=== PATIENT | male | born 1980 | race Caucasian/White ===

== ENCOUNTER → 2020-01-17 08:47 | Outpatient (BNVA) | payer BC, SELFPAY | PROVIDERS: Family Provider Nurse Practitioner Family; PCP Nurse Practitioner Family; Visit Provider Psychiatry & Neurology Psychiatry | DX: F41.1 Generalized anxiety disorder (principal); F90.9 Attention-deficit hyperactivity disorder, unspecified type; F12.10 Cannabis abuse, uncomplicated | CPT/HCPCS: 99204 ==

== ENCOUNTER → 2020-02-28 08:42 | Outpatient (BNVA) | payer BC, SELFPAY | PROVIDERS: Family Provider Nurse Practitioner Family; PCP Nurse Practitioner Family; Visit Provider Psychiatry & Neurology Psychiatry | DX: F90.9 Attention-deficit hyperactivity disorder, unspecified type (principal); F41.1 Generalized anxiety disorder; F12.10 Cannabis abuse, uncomplicated | CPT/HCPCS: 99213 ==

== ENCOUNTER → 2020-04-18 07:36 | Outpatient (BNVA) | payer BC, SELFPAY | PROVIDERS: Family Provider Nurse Practitioner Family; PCP Nurse Practitioner Family; Visit Provider Psychiatry & Neurology Psychiatry | DX: F90.9 Attention-deficit hyperactivity disorder, unspecified type (principal); F41.1 Generalized anxiety disorder; F12.10 Cannabis abuse, uncomplicated | CPT/HCPCS: 99214 ==

== ENCOUNTER → 2020-05-30 09:22 | Outpatient (BNVA) | payer BC, SELFPAY | PROVIDERS: Family Provider Nurse Practitioner Family; PCP Nurse Practitioner Family; Visit Provider Psychiatry & Neurology Psychiatry | DX: F90.9 Attention-deficit hyperactivity disorder, unspecified type (principal); F41.1 Generalized anxiety disorder; F12.10 Cannabis abuse, uncomplicated | CPT/HCPCS: 99214 ==

== ENCOUNTER → 2021-09-24 13:12 | Outpatient (BNVA) | payer OTHER, SELFPAY | PROVIDERS: Family Provider Nurse Practitioner Family; PCP Nurse Practitioner Family; Visit Provider Surgery | DX: D17.9 Benign lipomatous neoplasm, unspecified (principal); R22.2 Localized swelling, mass and lump, trunk | CPT/HCPCS: 99203 ==

== ENCOUNTER → 2021-12-05 09:00 | Outpatient (BNVA) | payer OTHER, SELFPAY | PROVIDERS: Family Provider Nurse Practitioner Family; PCP Nurse Practitioner Family; Referring Provider Emergency Medicine Emergency Medical Services; Visit Provider Podiatrist Foot & Ankle Surgery | DX: M72.2 Plantar fascial fibromatosis (principal); Q66.70 Congenital pes cavus, unspecified foot | CPT/HCPCS: 73630; 99203; 99204 ==

== ENCOUNTER 2021-12-24 08:37 | Outpatient (CLI) | payer OTHER, SELFPAY ==
--- NOTE | 2021-12-24 08:45 | US_ITS ---
WS: [id number] INDICATION: Lipoma? TECHNIQUE: Ultrasound soft tissue area of concern RIGHT back FINDINGS: Ultrasound area of concern]. Ovoid Mixed echogenicity lesion in the area of palpable concern measuring 5.2 x 1.3 cm most compatibl e with subcutaneous lipoma. No other suspicious anomalies. US/US soft tissue/extremity 89150 IMPRESSION: Mixed echogenicity lesion in the area of palpable concern measuring 5.2 x 1.3 cm most compatible with subcutaneous lipoma.
== END 2021-12-24 08:38 | disposition home or self-care (01) ==
LOC: RAD 08:39
PROVIDERS: PCP Nurse Practitioner Family; Visit Provider Surgery
DX: D17.9 Benign lipomatous neoplasm, unspecified (principal)
CPT/HCPCS: 76882

== ENCOUNTER 2022-01-15 08:57 | Day surgery (SDC) | payer OTHER, SELFPAY ==
[2022-01-15] VITALS (7 sets, daily range): BP systolic 106–146; BP diastolic 82–98; PULSE 63–103; RESP 18–23; TEMP 36.3–37.6; O2SAT 95–100
[2022-01-15] MEDS: sodium chloride 0.9% 1,000 ML 30 ML IV (09:19)
--- NOTE | 2022-01-15 09:22 | W.PM.OPSFHP ---
Same Day Surgery H&P Indication for Procedure/HPI DATE OF PROCEDURE: January 15, 2022 CHIEF COMPLAINT/INDICATIONFOR SURGICAL PROCEDURE: I have a spot on my back PREOP DIAGNOSIS: Back mass PLANNED PROCEDURE: Operation Date: 01/15/22 10:30 Proposed Procedures p excision of back mass 38268 R22.2(Not Applicable) - Robson Hurt MD 09/24/2021 This is a pleasant 41 years old gentleman comes today with concern of a mass on the right upper back, that has been there for quite some time.? In fact for few years and has been tender and painful, patient was referred to my practice for consideration of surgical excision, he reports no recent growth 01/15/2022 Patient comes today for excision of back mass, ultrasound was obtained on 12/24/2021 that did show; IMPRESSION: Mixed echogenicity lesion in the area of palpable concern measuring 5.2 x 1.3 cm most compatible with subcutaneous lipoma. ? ROS All systems have been reviewed negative except as for the above or per problem list. Medications/Allergies* Home Medications Medication Instructions Recorded Confirmed Type dextroamphetamine-amphetamine 10 10 mg PO BID 09/24/21 01/14/22 History mg tablet (Adderall) ibuprofen 200 mg tablet 200 mg PO .5 tabs daily PRN Pain 09/24/21 01/15/22 History Allergies/Adverse Reactions Allergy/AdvReac Type Severity Reaction Status Date / Time No Known Allergies Allergy Verified 01/15/22 09:23 Current Medications: Generic Name Dose Route Start Last Admin Trade Name Freq PRN Reason Stop Dose Admin Sodium Chloride 1,000 mls @ 30 mls/hr 01/15/22 09:15 01/15/22 09:19 Sodium Chloride 0.9% IV 01/16/22 09:14 30 mls/hr .Q24H NAHUM Administration Pertinent History/Comorbid Conditions* Medical History (Updated 09/27/21 @ 17:56 by Robson Hurt MD) ADHD (attention deficit hyperactivity disorder) Cannabis abuse Social History Smoking and tobacco status: never smoked Quit status (tobacco): has quit using tobacco Year quit tobacco: 2005 Second hand smoke exposure: No Current gender identity: Male Pertinent Exam Findings alert, oriented x 3, regular rate & rhythm and operative site marked (Right upper back mass) Recommendations Surgery/Procedure today (Excision of right upper back mass) Coding Level of Care Code Acute Nutritionist Public Health for [facility] Fwd
[2022-01-15] MEDS: ceFAZolin 2,000 MG in sodium chloride 0.9% (plus) 50 ML 100 MG IV (13:14)
[2022-01-15] MEDS: lidocaine 1% INJ 20 mL SUBCUT (13:33)
--- NOTE | 2022-01-15 13:41 | ANES.PREANE2 ---
Pre-Anesthetic Assessment Height/Weight: Height 1.83 m Weight 99.79 kg Temp Pulse Resp BP Pulse Ox O2 Del Method 99.6 F 63 18 130/89 96 01/15/22 09:06 01/15/22 09:06 01/15/22 09:06 01/15/22 09:06 01/15/22 09:06 01/15/22 09:06 Preop Diagnosis: Right upper back mass Operation Date: 01/15/22 10:30 Proposed Procedures p excision of back mass 62357 R22.2(Not Applicable) - Robson Hurt MD Familial anesthetic complications: none Was Beta Fawad taken within 24 hours: N/A Was Clonidine taken within 24 hours: N/A Last intake: Intake Last Liquid Date 01/14/22 Last Liquid Time 20:00 Last Solid Date 01/14/22 Last Solid Time 20:00 Social No alcohol and No tobacco Exam alert, oriented x 3, clear to auscultation bilaterally and regular rate & rhythm Airway Submandibular: within normal limits Cervical ROM: within normal limits Mallampati: Class II Dentition: full History/ROS No significant history except as noted Anesthetic Plan ASA status: 1 Anesthesia: General Medications/Allergies Home Medications Medication Instructions Recorded Confirmed Last Taken Type dextroamphetamine-amphetamine 10 10 mg PO BID 09/24/21 01/14/22 01/13/22 History mg tablet (Adderall) ibuprofen 200 mg tablet 200 mg PO .5 tabs daily PRN Pain 09/24/21 01/15/22 01/14/22 History Low profile CUSTOM carbon fiber #1 ea 12/05/21 12/05/21 Unknown Rx insoles Night splint bilaterally #1 ea 12/05/21 12/05/21 Unknown Rx Allergies Allergy/AdvReac Type Severity Reaction Status Date / Time No Known Allergies Allergy Verified 01/15/22 09:23 Current Medications Generic Name Dose Route Start Last Admin Trade Name Freq PRN Reason Stop Dose Admin Sodium Chloride 1,000 mls @ 30 mls/hr 01/15/22 09:15 01/15/22 09:19 Sodium Chloride 0.9% IV 01/16/22 09:14 30 mls/hr .Q24H NAHUM Administration PFSH Anesthesia Medical History ADHD (attention deficit hyperactivity disorder) Cannabis abuse Social History Smoking and tobacco status: never smoked Quit status (tobacco): has quit using tobacco Year quit tobacco: 2005 Second hand smoke exposure: No Current gender identity: Male Data Anesthesia Cardiac Studies: No Data to Display
--- NOTE | 2022-01-15 13:58 | P.OP_ITS ---
Operative Report Date of procedure: January 15, 2022 Pre-op diagnosis: Preop Diagnosis Right upper back mass Procedure done: Excision of right upper back lipoma Specimens removed/disposition: Right upper back mass short sutures marked superior and long sutures marked right lateral 7 x 3 x 3.5 cm Surgeon: Robson Hurt MD Wild Animal Caretaker: Moni Bee Anesthesia: General (liner roll changer waldemar Rivas and SILK SPOOLER Lawrence) Estimated blood loss (mL): 5 IV fluids (mL): 700 Procedure: After identifying the patient holding area, right upper back mass was marked before the procedure by myself, patient was then taken to the operative suite, was placed in left lateral position, all pressure points were padded, IV antibiotics were given per protocol, LMA was placed by the anesthesia provider, prep and drape of the right upper and mid back regions were done under the usual sterile technique. Time-out was done verifying the patient's name/date of /planned procedure and destination after the procedure, all were in agreement. After palpation of right upper back mass. Infiltration of lidocaine 2%. Started with transverse oblique incision. I was able to dissect using sharp dissection using Bovie cautery the whole mass all the way to the muscular layer but not intramuscular. Lipoma-like structure was totally excised ,short sutures marked superior and long sutures marked right lateral 7 x 3 x 3.5 cm Thorough irrigation of the cavity was done and hemostasis, followed by deep dermal closure by -0 Vicryl, then 4/0 Monocryl for subcuticular for skin closure Followed by Dermabond and pressure dressing Patient tolerated the procedure well, count of instruments, needles and sponges were completed at the end of the procedure. And then patient was taken to the recovery area in stable condition. I was present for the whole entire procedure
--- NOTE | 2022-01-15 16:39 | ANE.PACU2 ---
Inpatient post-anesthesia follow up: Airway intact: Yes Vital signs: Temperature 97.9 F Pulse Rate 90 Respiratory Rate 18 Blood Pressure 146/96 Pulse Oximetry 99 Oxygen Delivery Me thod Room Air Oxygen Flow Rate 5 Fraction of Inspir ed Oxygen Hydration adequate: Yes Nausea and vomiting: No Pain level: 1 Mental status: Baseline
== END 2022-01-15 14:50 | disposition home or self-care (01) ==
PROVIDERS: PCP Nurse Practitioner Family; Visit Provider Surgery
PROC: (CPT 11406; principal; 2022-01-15 10:30)
DX: D17.1 Benign lipomatous neoplasm of skin and subcutaneous tissue of trunk (principal)
CPT/HCPCS: 11406; 12032; 88304; J0690; J1100; J2405; J2704; J3010; J7030

== ENCOUNTER → 2022-01-22 13:21 | Outpatient (BNVA) | payer OTHER, SELFPAY | PROVIDERS: PCP Nurse Practitioner Family; Visit Provider Surgery | DX: Z09 Encounter for follow-up examination after completed treatment for conditions other than malignant neoplasm (principal) | CPT/HCPCS: 99024 ==

== ENCOUNTER → 2022-03-13 07:57 | Outpatient (BNVA) | payer OTHER, SELFPAY | PROVIDERS: PCP Nurse Practitioner Family; Visit Provider Podiatrist Foot & Ankle Surgery | DX: Q66.71 Congenital pes cavus, right foot (principal); Q66.72 Congenital pes cavus, left foot; M72.2 Plantar fascial fibromatosis | CPT/HCPCS: 99213 ==

== ENCOUNTER → 2023-03-17 07:56 | Outpatient (BNVA) | payer OTHER, SELFPAY | PROVIDERS: PCP Nurse Practitioner Family; Visit Provider Podiatrist Foot & Ankle Surgery | DX: M72.2 Plantar fascial fibromatosis; Q66.71 Congenital pes cavus, right foot; Q66.72 Congenital pes cavus, left foot | CPT/HCPCS: 99213 ==